=== PATIENT | male | born 1990 | race Caucasian/White ===

== ENCOUNTER 2018-04-28 03:18 | Emergency (ER) | payer OTHER ==
--- NOTE | 2018-04-28 03:31 | ED ---
Laceration/Wound HPI - HPI Summary HPI Summary: This patient is a 28 year old M brought in by ambulance to ED with a chief complaint of chin laceration since [employer]. He was intoxicated and running to his apartment when he slipped and fell onto concrete. He also landed on his L wrist. Bleeding is currently controlled. The patient rates the pain 0/10 in severity. Symptoms aggravated by nothing. Symptoms alleviated by nothing. The patient denies any other sx. - History of Current Complaint Stated Complaint: "CHIN LAC" PER EMS Hx Obtained From: Patient Onset/Duration: Sudden Onset, Lasting Minutes, Still Present Aggravating: Nothing Alleviating: Nothing Current Severity: None Pain Intensity: 0 Pain Scale Used: 0-10 Numeric - Allergy/Home Medications Allergies/Adverse Reactions: Allergies Allergy/AdvReac Type Severity Reaction Status Date / Time No Known Allergies Allergy Verified 04/28/18 03:24 PMH/Surg Hx/FS Hx/Imm Hx Endocrine/Hematology History: Denies: Hx Diabetes Cardiovascular History: Denies: Hx Coronary Artery Disease Infectious Disease History: No Infectious Disease History: Denies: Traveled Outside the [place] in Last 30 Days - Family History Known Family History: Negative: Blood Disorder - Social History Alcohol Use: Weekly Substance Use Type: Reports: None Smoking Status (MU): Never Smoked Tobacco Review of Systems Positive: Other - fell on L wrist Positive: Other - chin laceration All Other Systems Reviewed And Are Negative: Yes Physical Exam - Summary Physical Exam Summary: Appearance: Well-appearing, Well-nourished, lying in bed comfortable Skin: Warm, dry, no obvious rash Eyes: sclera anicteric, no conjunctival pallor ENT: mucous membranes moist, 2.5 cm laceration on chin, no sign of mandibular fracture Neck: deferred Respiratory: No signs of respiratory distress Cardiovascular: Appears well perfused, pulses are nml Abdomen: deferred Musculoskeletal: Moving all 4 extremities without obvious discomfort Neurological: Awake and alert, mentation is normal, speech is fluent and appropriate Psychiatric: affect is normal, does not appear anxious or depressed Triage Information Reviewed: Yes Vital Signs On Initial Exam: Initial Vitals Temp Pulse Resp BP Pulse Ox 99.0 F 109 18 119/83 96 04/28/18 03:20 04/28/18 03:20 04/28/18 03:20 04/28/18 03:20 04/28/18 03:20 Vital Signs Reviewed: Yes Procedures - Laceration/Wound Repair 1 Location: face - chin Description: Linear Anesthesia: Local, .5%, 2.0%, Lido, Epi Length, Depth and Shape: 2.5 cm Betadine Prep?: Yes Laceration/Wound Explored: clean Closure: Single Layer Suture Type: Nylon - 4 sutures Number of Sutures: 4 Diagnostics - Vital Signs Vital Signs Temp Pulse Resp BP Pulse Ox 04/28/18 03:20 99.0 F 109 18 119/83 96 - Laboratory Lab Statement: Any lab studies that have been ordered have been reviewed, and results considered in the medical decision making process. - Radiology L wrist XR Radiology Interpretation Completed By: ED Physician Summary of Radiographic Findings: No fracture. Pending radiologist official report. Laceration Repair Course/Dx - Course Assessment/Plan: This patient is a 28 year old M brought in by ambulance to ED with a chief complaint of chin laceration since [employer]. Chin laceration was stitched. L wrist XR, per ED physician, reveals no fracture. Patient will be dicharged with dx of facial laceration. Patient understands and agrees with this plan. - Differential Dx Differental Diagnoses: Other - facial laceration - Clinical Impression Provider Diagnoses: Facial laceration Discharge - Sign-Out/Discharge Documenting (check all that apply): Patient Departure - discharge Patient Received Moderate/Deep Sedation with Procedure: No - Discharge Plan Condition: Improved Disposition: HOME Patient Education Materials: Care For Your Stitches (ED), Facial Laceration (ED ) Referrals: [facility] [Outside] - 1 Week (for suture removal) - Attestation Statements Document Initiated by Scribe: Yes Documenting Scribe: Vin Landon Provider For Whom Scribe is Documenting (Include Credential): Arvind Soni MD Scribe Attestation: Vin Borden, scribed for Arvind Soni MD on 04/28/18 at 0418. Status of Scribe Document: Ready
[2018-04-28] MEDS ORDERED: Tetan/Diph/Pertus SYR(Tdap)* 0.5 ML SYR(BOOSTRIX) use SYR IM ONE (03:36)
[2018-04-28 04:28] VITALS: BP 121/76
== END 2018-04-28 04:32 | disposition home or self-care (01) ==
LOC: ED 03:18
DX: S01.81XA Laceration without foreign body of other part of head, initial encounter (principal); F10.129 Alcohol abuse with intoxication, unspecified; W01.0XXA Fall on same level from slipping, tripping and stumbling without subsequent striking against object, initial encounter; Y93.02 Activity, running; Y92.89 Other specified places as the place of occurrence of the external cause; Z23 Encounter for immunization
CPT/HCPCS: 12013; 90471; 99282

== ENCOUNTER 2018-04-28 11:22 | Emergency (ER) | payer OTHER ==
--- NOTE | 2018-04-28 12:38 | ED ---
Upper Extremity Pain - HPI Summary HPI Summary: Patient is a 28-year-old male presents to the ED with left wrist injury. He was seen in the ED last evening. Radiologist called into me this morning with a possible positive read of a left radial fracture. Called patient this morning and patient returns to the ED for further evaluation. He is endorsing pain over the radial side of the wrist. He denies any other pain from his injuries last evening. - History of Current Complaint Chief Complaint: EDExtremityUpper Stated Complaint: LEFT HAND HURTS, WAS HERE LAST NIGHT Time Seen by Provider: 04/28/18 11:26 Hx Obtained From: Patient Onset/Duration: Started Hours Ago Timing: Constant Severity Initially: Moderate Severity Currently: Moderate Pain Location: Wrist Character: Aching Aggravating Factor(s): Nothing Alleviating Factor(s): Nothing Associated Signs & Symptoms: Positive: Negative Related History: Dominant Hand Right - Risk Factors Non-Orthopedic Risk Factor: Negative DVT Risk Factors: Negative Septic Arthritis Risk Factor: Negative Compartment Syndrome Risk Factors: Pain - Allergies/Home Medications Allergies/Adverse Reactions: Allergies Allergy/AdvReac Type Severity Reaction Status Date / Time No Known Allergies Allergy Verified 04/28/18 11:31 PMH/Surg Hx/FS Hx/Imm Hx Previously Healthy: Yes Endocrine/Hematology History: Denies: Hx Diabetes Cardiovascular History: Denies: Hx Coronary Artery Disease - Immunization History Hx Pertussis Vaccination: No Immunizations Up to Date: Yes Infectious Disease History: No Infectious Disease History: Denies: Traveled Outside the [place] in Last 30 Days - Family History Known Family History: Negative: Blood Disorder - Social History Occupation: Employed Full-time, Student Lives: Dormitory/Roommates Alcohol Use: Weekly Hx Substance Use: No Substance Use Type: Reports: None Smoking Status (MU): Never Smoked Tobacco Review of Systems Constitutional: Negative Negative: Fever, Chills, Fatigue Negative: Abdominal Pain, Vomiting, Diarrhea Positive: Arthralgia - left wrist fracture Neurological: Negative All Other Systems Reviewed And Are Negative: Yes Physical Exam Triage Information Reviewed: Yes Vital Signs On Initial Exam: Initial Vitals Temp Pulse Resp BP Pulse Ox 99.7 F 108 16 129/80 99 04/28/18 11:28 04/28/18 11:28 04/28/18 11:28 04/28/18 11:28 04/28/18 11:28 Vital Signs Reviewed: Yes Appearance: Positive: Well-Appearing, Well-Nourished Skin: Positive: Warm, Skin Color Reflects Adequate Perfusion Head/Face: Positive: Normal Head/Face Inspection Eyes: Positive: EOMI, ANTOINETTE, Conjunctiva Clear Neck: Positive: Supple, No Lymphadenopathy Respiratory/Lung Sounds: Positive: Clear to Auscultation, Breath Sounds Present Cardiovascular: Positive: RRR, Pulses are Symmetrical in both Upper and Lower Extremities Musculoskeletal: Positive: Strength/ROM Intact Neurological: Positive: Alert, Oriented to Person Place, Time, Speech Normal Psychiatric: Positive: Affect/Mood Appropriate Diagnostics - Vital Signs Vital Signs Temp Pulse Resp BP Pulse Ox 04/28/18 11:28 99.7 F 108 16 129/80 99 - Laboratory Lab Statement: Any lab studies that have been ordered have been reviewed, and results considered in the medical decision making process. Course/Dx - Course Course Of Treatment: Patient arrives back to the ED today after being discharged last evening. Overnight read by ED physician negative for fx. However, radiologist read this as a possible radial fracture. I called patient this morning - no answer. However patient arrived back into the ED 2 hours later with CC of left wrist pain. Denies other concerns. Volar wrist splint placed and patient is DC'd with ortho f/u. - Diagnoses Differential Diagnosis/HQI/PQRI: Positive: Fracture (Open), Fracture (Closed) Provider Diagnoses: Radius fracture Discharge - Sign-Out/Discharge Documenting (check all that apply): Patient Departure Patient Received Moderate/Deep Sedation with Procedure: No - Discharge Plan Condition: Stable Disposition: HOME Prescriptions: traMADol TAB* [Ultram*] 50 mg PO Q8H PRN #12 tab MDD 3 PRN Reason: Pain Patient Education Materials: Wrist Fracture in Adults (ED) Referrals: Doug Connelly MD [Medical Doctor] - Carmenza Myrick NP [Primary Care Provider] - Additional Instructions: Please follow up with orthopedic clinic tomorrow Do not get the splint wet Suture removal or sunday as discussed - Billing Disposition and Condition Condition: STABLE Disposition: Home
[2018-04-28 13:08] VITALS: BP 113/70
== END 2018-04-28 13:06 | disposition home or self-care (01) ==
LOC: ED 11:22
DX: S52.92XA Unspecified fracture of left forearm, initial encounter for closed fracture (principal); X58.XXXA Exposure to other specified factors, initial encounter; Y92.9 Unspecified place or not applicable
CPT/HCPCS: 99282

== ENCOUNTER 2018-05-03 14:03 | Emergency (ER) | payer OTHER ==
--- OUTSIDE RECORDS SUMMARY | 2018-05-03 14:41 | XMS REPORT | Continuity of Care Document ---
:1990 External Reference #:[id number] Author Name Tammi Boothe Care Team Providers Name Role Phone [facility] Primary Care Physician Unavailable Payers Date Identification Numbers Payment Provider Subscriber Policy Number: [id number] [employer] Ilia Rossi PayID: [id number] [address] [place] [address] Advance Directives Description No Information Available Problems Description No Information Family History Date Family Member(s) Observation Comments General Hypertension father General Stroke brother Social History Type Date Description Comments Sex Unknown Lives With Alone Occupation Student ETOH Use Denies alcohol use Tobacco Use Start: Unknown Patient has never smoked Smoking Status Reviewed: 05/01/18 Patient has never smoked Exercise Type/Frequency Exercises regularly running Allergies, Adverse Reactions, Alerts Description No Known Drug Allergies Medications Description No Active Medications Immunizations Description No Information Available Vital Signs Date Vital Result Comment 05/01/2018 8:26am Height 70 inches 5'10" Weight 177.00 lb Heart Rate 52 /min BP Systolic Sitting 108 mmHg BP Diastolic Sitting 82 mmHg Body Temperature 96.4 F Pain Level 8 BMI (Body Mass Index) 25.4 kg/m2 Results Description No Information Available Procedures Description No Information Available Encounters Description No Information Available Plan of Treatment Future Appointment(s):05/22/2018 8:45 am - Garrick Dominguez MD at [facility]
[2018-05-03 15:38] VITALS: BP 112/76
--- NOTE | 2018-05-03 16:59 | ED ---
Skin Complaint - HPI Summary HPI Summary: Patient is a 28-year-old male presenting to the ED 5 days after laceration to the chin. 4 sutures were placed. He is here requesting suture removal. He denies any redness to the area or discharge from the area. Denies any pain. He continues to wash the area with soap and water gently. - History of Current Complaint Chief Complaint: EDLacSutureRecheck Time Seen by Provider: 05/03/18 14:28 Stated Complaint: 'I NEED TO GET STITCHES OUT" PER PT Hx Obtained From: Patient Onset/Duration: Started Hours Ago Skin Exposure Onset/Duration: Hours Ago Timing: Lasting Days Onset Severity: Mild Current Severity: None Pain Intensity: 0 Pain Scale Used: 0-10 Numeric Aggravating Symptom(s): Nothing Alleviating Symptom(s): Nothing Associated Signs & Symptoms: Negative - Allergy/Home Medications Allergies/Adverse Reactions: Allergies Allergy/AdvReac Type Severity Reaction Status Date / Time No Known Allergies Allergy Verified 05/03/18 14:19 PMH/Surg Hx/FS Hx/Imm Hx Previously Healthy: Yes Endocrine/Hematology History: Denies: Hx Diabetes Cardiovascular History: Denies: Hx Coronary Artery Disease - Immunization History Hx Pertussis Vaccination: No Immunizations Up to Date: Yes Infectious Disease History: No Infectious Disease History: Denies: Traveled Outside the [place] in Last 30 Days - Family History Known Family History: Negative: Blood Disorder - Social History Occupation: Employed Full-time Lives: With Family Alcohol Use: Weekly Hx Substance Use: No Substance Use Type: Reports: None Smoking Status (MU): Never Smoked Tobacco Review of Systems Constitutional: Negative Negative: Fever, Chills, Fatigue, Skin Diaphoresis Negative: Palpitations, Chest Pain Negative: Abdominal Pain, Vomiting Genitourinary: Negative Positive: no symptoms reported, see HPI Negative: Arthralgia, Myalgia Positive: Other - suture removal from chin - 4 sutures Neurological: Negative All Other Systems Reviewed And Are Negative: Yes Physical Exam Triage Information Reviewed: Yes Vital Signs On Initial Exam: Initial Vitals Temp Pulse Resp BP Pulse Ox 97.9 F 53 16 132/81 99 05/03/18 14:16 05/03/18 14:16 05/03/18 14:16 05/03/18 14:16 05/03/18 14:16 Vital Signs Reviewed: Yes Appearance: Positive: Well-Appearing, Well-Nourished Skin: Positive: Warm, Skin Color Reflects Adequate Perfusion, Other - suture removal from chin - 4 sutures Head/Face: Positive: Normal Head/Face Inspection Neck: Positive: Supple, No Lymphadenopathy Respiratory/Lung Sounds: Positive: Clear to Auscultation, Breath Sounds Present Cardiovascular: Positive: Pulses are Symmetrical in both Upper and Lower Extremities Musculoskeletal: Positive: Strength/ROM Intact Neurological: Positive: Speech Normal Psychiatric: Positive: Affect/Mood Appropriate AVPU Assessment: Alert Diagnostics - Vital Signs Vital Signs Temp Pulse Resp BP Pulse Ox 05/03/18 15:37 97.9 F 55 16 112/76 100 05/03/18 14:16 97.9 F 53 16 132/81 99 - Laboratory Lab Statement: Any lab studies that have been ordered have been reviewed, and results considered in the medical decision making process. Course/Dx - Course Course Of Treatment: During the course of treatment, the patient's evaluated for suture removal of the chin. There are 4 sutures placed. No drainage or other erythema noted. Denies any fevers, sweats, chills. 4 sutures removed all intact. Patient tolerated well. - Diagnoses Provider Diagnoses: Visit for suture removal Discharge - Sign-Out/Discharge Documenting (check all that apply): Patient Departure Patient Received Moderate/Deep Sedation with Procedure: No - Discharge Plan Condition: Stable Disposition: HOME Patient Education Materials: Stitches Removal (ED) Referrals: No Primary Care Phys,NOPCP [Primary Care Provider] - Additional Instructions: Put some antibiotic ointment over the area if the area continues to be dry Wash with soap and water gently - Billing Disposition and Condition Condition: STABLE Disposition: Home
== END 2018-05-03 15:37 | disposition home or self-care (01) ==
LOC: ED 14:03
DX: S01.81XD Laceration without foreign body of other part of head, subsequent encounter (principal); X58.XXXD Exposure to other specified factors, subsequent encounter; Z48.02 Encounter for removal of sutures